=== PATIENT | male | born 1945 | race Caucasian/White ===

== ENCOUNTER 2020-03-04 14:08 | Observation (INO) | payer OTHER ==
--- OUTSIDE RECORDS SUMMARY | 2020-03-04 14:11 | XMS REPORT | Clinical Summary ---
:1945 Author Organization [facility] Address [address] [place] [address] Care Team Providers Name Role Phone Wilbert Primary Care Provider Allergies No Known Allergies Medications Medication Sig Dispensed Refills Start Date End Date Status amLODIPine (NORVASC) 5 Take 5 mg by 0 Active mg tablet mouth daily. levothyroxine Take 88 mcg by 0 A ctive (SYNTHROID, LEVOXYL) 88 mouth every mcg tablet morning. pravastatin (PRAVACHOL) Take 40 mg by 0 Active 40 MG tablet mouth daily. montelukast (SINGULAIR) Take 10 mg by 0 Active 10 mg tablet mouth nightly. aspirin (ECOTRIN) 81 MG Take 81 mg by 0 Active enteric coated tablet mouth daily. dulaglutide (TRULICITY) Inject under the 0 Active 0.75 mg/0.5 mL pen skin once a injector week. ergocalciferol (VITAMIN Take 50,000 0 Active D2) 50,000 unit capsule Units by mouth once a week. benazepril (LOTENSIN) 20 Take 20 mg by 0 Active MG tablet mouth daily. ascorbic acid, vitamin Take 1,000 mg by 0 Active C, (vitamin C) 1000 MG mouth 2 (two) tablet times a day. cyanocobalamin, vitamin Place under the 0 Active B-12, (VITAMIN B-12) tongue. 1,000 mcg tablet, sublingual VITAMIN B COMPLEX ORAL Take 1 tablet by 0 Active mouth daily. glucosamine/msm/chondroi Take by mouth. 0 Active t sulf (GLUCOSAMINE [id number] ORAL) calcium carbonate Take 2 tablets 0 Active (CALCIUM 600 ORAL) by mouth daily. Active Problems Problem Noted Date CAD (coronary artery disease) s/p CABG x 2 (2012) and PCI (2017) 09/01/2018 Chronic kidney disease 09/01/2018 Last Assessment & Plan: N. Patient with renal disease interested in peritoneal dialysis. Patient and I discussed the dialysis options including hemodialysis, peritoneal dialysis, and transplant. We discussed our general approac h to peritoneal dialysis with laparoscop ic placement. We discussed the potential operative risks including general anesthetic complications, injury to intestines, bleeding, infection, and catheter malf unction. We discussed the importance of long-term catheter care with sterile technique to avoid peritonitis. We discussed as well possible catheter malfunction with adhesions with a delayed fashion wh ich could result in need for laparoscopi c revision. Additionally, we discussed possible exhaustion of the peritoneal membrane. Plan: Cardiac clearance from Dr. Haji. Lawanda garza, [employer] and umbilical hernia repair. Hold Eliquis x 48 hours. History of DVT (deep vein thrombosis) (2018) 8 S/P placement of cardiac pacemaker 09/01/2018 Social History Tobacco Use Types Packs/Day Years Used Date Never Smoker Smokeless Tobacco: Never Used Alcohol Use Drinks/Week oz/Week Comments No Sex Assigned at Date Recorded Not on file Job Start Date Occupation Industry Not on file Not on file Not on file Travel History Travel Start Travel End No recent travel history available. 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
--- OUTSIDE RECORDS SUMMARY | 2020-03-04 14:13 | XMS REPORT | Continuity of Care Document ---
:1945 Author Organization [facility] t Address [address] [place] [place] [address] Care Team Providers Name Role Phone Wilbert Primary Care Physician DR YULI Attending Clinician Unavailable CECILY, Attending Clinician Unavailable PEÑA, Attending Clinician Unavailable YULI, Admitting Clinician Unavailable CECILY, Admitting Clinician Unavailable PEÑA, Admitting Clinician Unavailable Payers Payer Name Policy Type Policy Number Effective Date Expiration Date S ource Problems Condition Condition Condition Status Onset Resolution Last Treating Co mments Source Name Details Category Date Date Treatment Clinician Date CAD CAD Disease Active 2017-09 [place] (coronary (coronary 2-11 Meth nadiya artery artery 00:00: st disease) disease) 00 s/p CABG x s/p CABG x 2 (2012) 2 (2012) and PCI and PCI (2017) (2017) Chronic Chronic Disease Active 2017- Last [place] kidney kidney 2-11 Assessmen Methodi disease disease 00:00: t & Plan: st 00 N. Patient with renal disease intereste d in peritonea l dialysis. Patient and I discussed the dialysis options including hemodialy sis, peritonea l dialysis, and transplan t. We discussed our general approach to peritonea l dialysis with laparosco pic placement . We discussed the potential operative risks including general anestheti c complicat ions, injury to intestine s, bleeding, infection , and catheter malfuncti on. We discussed the importanc e of long-term catheter care with sterile technique to avoid peritonit is. We discussed as well possible catheter malfuncti on with adhesions with a delayed fashion which could result in need for laparosco pic revision. Addition ally, we discussed possible exhaustio n of the peritonea l membrane. Plan: Cardiac clearance from Dr. Haji. Then, [place] [employer] and umbilical hernia repair. Hold Eliquis x 48 hours. History of History of Disease Active 2017-09 [place] DVT (deep DVT (deep 11-02 Meth nadiya vein vein 00:00: st thrombosis thrombosis 00 ) (2018) ) (2018) S/P S/P Disease Active 2017-09 [place] placement placement 11-02 Meth nadiya of cardiac of cardiac 00:00: st pacemaker pacemaker 00 Allergies, Adverse Reactions, Alerts Allergy Allergy Status Severity Reaction(s) Onset Inactive Treating Comm ents Source Name Type Date Date Clinician No Known DA Active U 2012-09 [facility] Allergie 10-26 Clear s 00:00: [place] 00 [facility] Social History Social Habit Start Date Stop Date Quantity Comments Source Sex Assigned At [facility] ethodist Alcohol intake 2018-09-01 2018-09-01 Current [facility] thodist 00:00:00 00:00:00 non-drinker of alcohol (finding) Smoking Status Start Date Stop Date Source Never smoker [place] Methodis t Medications Ordered Filled Start Stop Current Ordering Indication Dosage Frequency Signature Comments Components Source Medication Medication Date Date Medication? Clinician (SIG) Name Name amLODIPine 2017-09 Yes 5mg QD Take 5 mg [place] (NORVASC) 5 2-11 by mouth Meth nadiya mg tablet 07:58: daily. st 42 levothyroxi 2017-09 Yes 88ug QD Take 88 Cristian ston ne 2-11 mcg by Methodi (SYNTHROID, 07:58: mouth st LEVOXYL) 88 42 every mcg tablet morning. pravastatin 2017-09 Yes 40mg QD Take 40 mg Raza (PRAVACHOL) 2-11 by mouth Meth nadiya 40 MG 07:58: daily. st tablet 42 montelukast 2017-09 Yes 10mg QD Take 10 mg [place]aza (SINGULAIR) 2-11 by mouth Meth nadiya 10 mg 07:58: nightly. st tablet 42 aspirin 2017-09 Yes 81mg QD Take 81 mg [place] (ECOTRIN) 2-11 by mouth Method i 81 MG 07:58: daily. st enteric 42 coated tablet dulaglutide 2017-09 Yes Q7D Inject [place] (TRULICITY) 2-11 under the Met hodi 0.75 mg/0.5 07:58: skin once s t mL pen 42 a week. injector ergocalcife 2017-09 Yes [id number] Q7D Take [place] rol 2-11 50,000 Methodi (VITAMIN 07:58: Units by st D2) 50,000 42 mouth once unit a week. capsule benazepril 2017-09 Yes 20mg QD Take 20 mg [place] (LOTENSIN) 2-11 by mouth Metho di 20 MG 07:58: daily. st tablet 42 ascorbic 2017-09 Yes 1000mg Q.5D Take 1,000 [place] acid, 2-11 mg by Methodi vitamin C, 07:58: mouth 2 st (vitamin C) 42 (two) 1000 MG times a tablet day. cyanocobala 2017-[address] [place] min, 2-11 under the Methodi vitamin 07:58: tongue. st B-12, 42 (VITAMIN B-12) 1,000 mcg tablet, sublingual VITAMIN B 2017-09 Yes 1{tbl} QD Take 1 [place] COMPLEX 2-11 tablet by Methodi ORAL 07:58: mouth st 42 daily. glucosamine 2017-09 Yes Take by Cristian amira /msm/chondr 2-11 mouth. Method i oit sulf 07:58: st (GLUCOSAMIN 42 E 2KCL-MSM-CH ONDROIT ORAL) calcium 2017-09 Yes 2{tbl} QD Take 2 [place] carbonate 2-11 tablets by Meth nadiya (CALCIUM 07:58: mouth st 600 ORAL) 42 daily. Procedures This patient has no known procedures. Plan of Care Planned Activity Planned Date Details Comments Source Future Scheduled 2020-04-22 INFLUENZA VACCINE Srikanthto n Bahai Test 00:00:00 [code = INFLUENZA VACCINE] Future Scheduled 2012 65+ PNEUMOCOCCAL Raza Bahai Test 00:00:00 VACCINE (1 of 2 - PCV13) [code = 65+ PNEUMOCOCCAL VACCINE (1 of 2 - PCV13)] Future Scheduled 1997 COLONOSCOPY SCREENING Deondre paz Bahai Test 00:00:00 [code = COLONOSCOPY SCREENING] Future Scheduled 1997 SHINGLES VACCINES (#1) H dinora Bahai Test 00:00:00 [code = SHINGLES VACCINES (#1)] Encounters Start End Encounter Admission Attending Care Care Encounter Source Date/Time Date/Time Type Type Clinicians Facility Department ID 2018-06-07 2018-06-08 Outpatient E CECILY [facility] TELE [id number] be 07:20:00 13:56:00 CAYDEN [facility] 2018-05-22 2018-05-26 Inpatient E PEÑA [facility] MED [id number] be 07:30:00 04:17:00 [facility] Results Test Description Test Time Test Comments Results Result Comments Source BLOOD CULTURE 2018-06-18 10:48:00 Test Item Value Reference Range Interpretation Comme nts Culture Observations (test code = COB1) NO GROWTH AFTER 5 DAYS BLOOD [id number] 10:48:00 Test Item Value Reference Range Interpretation Comments Culture Observations (test NO GROWTH AFTER 5 code = COB1) DAYS GLUCOMETER GLUCOSE- LAB USE [id number] 10:45:00 Test Item Value Reference Range Interpretation Comments GLUCOMETER (test code = 117 mg/dL 70-100 H Mete r ID: GMG) [id number] tor: [id number] KIERRAKAELA CARRERA CBC (INCLUDES AUTOMATED DIFFERENTIAL)2018-06-14 07:29:00 Test Item Value Reference Range Interpretation Comments WBC (test code = WBC) 5.0 10\S\3/uL 4.5-11.0 RBC (test code = RBC) 3.04 10\S\6/uL 3.80-5.80 L HGB (test code = HBG) 9.3 g/dL 14.0-18.0 L HCT (test code = HCT) 28.5 % 35.0-46.0 L MCV (test code = MCV) 93.8 fL 80.0-94.0 MCH (test code = MCH) 30.6 pg 27.0-31.0 MCHC (test code = MCHC) 32.6 g/dL 32.0-36.0 RDW (test code = RDW) 14.1 % 11.5-14.5 PLT (test code = PLT) 157 10\S\3/uL 130-400 MPV (test code = MPV) 8.8 fL 9.4-12.4 L NEUTROP # (test code = NE#) 2.5 10\S\3/uL 2.0-8.0 LYMPH # (test code = LY#) 1.7 10\S\3/uL 1.2-4.0 MONOCYTE # (test code = MO#) 0.5 10\S\3/uL 0.0-1.1 EOSINOPH # (test code = EO#) 0.2 10\S\3/uL 0.0-0.7 BASOPHIL # (test code = BA#) 0.0 10\S\3/uL 0.0-0.3 IG # (test code = IG#) 0.03 10\S\3/uL 0.00-0.06 NRBC # (test code = NRBC#) 0.00 10\S\3/uL 0.00-0.01 NEUTROPH % (test code = NE%) 50.6 % 35.0-73.0 LYMPH % (test code = LY%) 34.1 % 20.0-55.0 MONO % (test code = MO%) 10.9 % 2.5-10.0 H EOSINOPH % (test code = EO%) 3.4 % 0.0-5.0 BASOPHIL % (test code = BA%) 0.4 % 0.0-2.0 IG % (test code = IG%) 0.6 % 0.0-0.8 NRBC% (test code = NRBC%) 0.0 % 0.0-0.2 MANDIFF (test code = MDIFF) NO NO RBC MORPH (test code = RBCMOR) NORMAL COMPREHENSIVE METABOLIC [id number] 06:19:00 Test Item Value Reference Range Interpretation Comments GLUCOSE (test code = 06D) 84 mg/dL 75-100 SODIUM (test code = 01A) 137 mmol/L 136-145 POTASSIUM (test code = 01B) 4.3 mmol/L 3.6-5.1 CHLORIDE (test code = 04A) 107 mmol/L 98-107 CO2 (test code = 02A) 19 mmol/L 22-32 L ANION GAP (test code = ANG) 15.3 mmol/L BUN (test code = 05D) 60 mg/dL 7-18 H CREATININE (test code = 03E) 3.3 mg/dL 0.7-1.3 H BUN/CREA (test code = BCR) 18 12-20 CALCIUM (test code = 09D) 7.8 mg/dL 8.3-9.5 L BILI TOTAL (test code = 11A) 0.5 mg/dL 0.2-1.0 PROTEIN (test code = 07D) 6.4 g/dL 6.4-8.2 ALBUMIN (test code = 08D) 3.4 g/dL 3.5-4.8 L GLOBULIN (test code = GLB) 3.0 g/dL 1.5-3.8 ALB/GLOB (test code = AGRR) 1.1 1.0-2.6 ALK PHOS (test code = 35A) 52 IU/L 42-121 AST (test code = 30A) 23 IU/L <=42 ALT (test code = 31A) 26 IU/L <=78 GLUCOMETER GLUCOSE- LAB USE [id number] 06:10:00 Test Item Value Reference Range Interpretation Comments GLUCOMETER (test code 111 mg/dL 70-100 H CLEANE D METERMeter ID: = GMG) [id number] tor: 5169 HÉCTOR JOSEPH CARDIAC [id number] 22:23:00 Test Item Value Reference Range Interpretation Comments TROPONIN I (test code = A84) <0.015 ng/mL 0.000-0.045 CKMB (test code = A49) 1.3 ng/mL <=3.6 CPK (test code = 32A) 59 IU/L 39-308 NM LUNG VENTILATION SCAN W [id number] 22:10:47HISTORY: PainRadiopharmaceutical: 6 mCi Tc 99 MAA and 11 mCi Xe-133 gas.FINDINGS:Ventilation: There is homogeneous distribution of radiotracer on thebreath-hold images. Perfusion: There is mild heterogeneous distribution of radiotracer throughoutboth lungs. No segmental pleural based perfusion abnormal ities demonstrated.IMPRESSION:1. Low probability for pulmonary embolus. GLUCOMETER GLUCOSE- LAB USE [id number] 19:56:00 Test Item Value Reference Range Interpretation Comments GLUCOMETER (test code 140 mg/dL 70-100 H CLEANE D METERMeter ID: = GMG) [id number] tor: 5169 HÉCTOR JOSEPH GLUCOMETER GLUCOSE- LAB USE [id number] 16:05:00 Test Item Value Reference Range Interpretation Comments GLUCOMETER (test code = 181 mg/dL 70-100 H Mete r ID: GMG) [id number] tor: 9208 KIERRA CARRERA CARDIAC [id number] 16:03:00 Test Item Value Reference Range Interpretation Comments TROPONIN I (test code = A84) <0.015 ng/mL 0.000-0.045 CKMB (test code = A49) 1.2 ng/mL <=3.6 CPK (test code = 32A) 55 IU/L 39-308 GLUCOMETER GLUCOSE- LAB USE [id number] 10:56:00 Test Item Value Reference Range Interpretation Comments GLUCOMETER (test code = 96 mg/dL 70-100 Mete r ID: GMG) [id number] tor: 9208 KIERRA CARRERA U/S VENOUS DOPPLER LT LOWER [id number] 09:30:19LOCATION CODE: [id number] DOPPLER LOWER EXTREMITY, LEFTHISTORY: SwellingCOMPARISON: None availableTECH NIQUE: Real-time spectral analysis and color flow imaging ultrasound of the left lower extremity was obtained from the inguinal ligament down to theankle in transverse and longitudinal planes.FINDINGS: Duplex color Doppler ultrasound of the common femoral, superficialfemoral, popliteal, and anterior-posterior tibial vein was obtained.There is partial compressibility noted at the proximal and distal femoralveins. Partial compressibility at the popliteal vein. However flow is seenwithin the veins.Normal flow and compressibility involving the common femoral vein, posteriortibial, anterior tibial and peroneal veins. No augmentation is performed giving possible DVT.IMPRESSION:Partial compressibility noted at the proximal and distal femoral veins as wellas the popliteal vein. However flow is seen within the veins., Therefore, thisis suspicious for partial DVT. Follow-up is recommended.[id number] 08:51:00 Test Item Value Reference Range Interpretation Comments D-DIMER (test code = 3449 ng/mL D-DU 0-234 H DDI) D-DIMER COMMENT (test *Level to rule out code = DDCOM) DVT or PE: <235 ng/mL D-DU* CT HEAD W/O [id number] 08:46:02Location [id number] CT BRAINHistory: Altered mental statusCOMPARISON: None availableTECHNIQUE : Serial axial CT of the brain obtained without the use ofintravenous contrast in the brain and bone window settings. Coronal andsagittal reconstructions are provided. One or more of the following dosereduction techniques were used: Automated exposure control, adjustment of themAs and Kv. According to patient size, use of iterative reconstructionreconstruction technique. DLP 886 mGy-cm.FINDINGS:There is no evidence of acute cerebrovascular injury, mass effect or midlineshift. No evidence of subarachnoid hemorrhage, intracerebral hematoma, orextraaxial fluid collections.There is mild generalized parenchymal volume loss with compensatory widening ofthe ventricular system. Diffuse periventricular white matter hypodensity iscompatible with chronic microangiopathy changes. Heavy atherosclerosis (diffusecalcified plaque) involves the supraclinoid carotid arteries bilaterally.Osseous structures are unremarkable. The orbits appear normal. The visibleparanasal sinuses and mastoid air spaces are clear. If symptomatology persists, correlation with MRI may be of further benefit.IMPRESSION:1. No acute intracranial findings.2. 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 Note of heavy diffuse atherosclerosis involving the supraclinoid carotidarteries.BRAIN NATRIURETIC [id number] 08:44:00 Test Item Value Reference Range Interpretation Comments proBNP (test code = PBNP) 927 pg/mL 0-125 H CARDIAC [id number] 08:41:00 Test Item Value Reference Range Interpretation Comments TROPONIN I (test code = A84) <0.015 ng/mL 0.000-0.045 CKMB (test code = A49) 1.1 ng/mL <=3.6 CPK (test code = 32A) 51 IU/L 39-308 COMPREHENSIVE METABOLIC [id number] 08:40:00 Test Item Value Reference Range Interpretation Comments GLUCOSE (test code = 06D) 95 mg/dL 75-100 SODIUM (test code = 01A) 137 mmol/L 136-145 POTASSIUM (test code = 01B) 4.7 mmol/L 3.6-5.1 CHLORIDE (test code = 04A) 106 mmol/L 98-107 CO2 (test code = 02A) 18 mmol/L 22-32 L ANION GAP (test code = ANG) 17.7 mmol/L BUN (test code = 05D) 63 mg/dL 7-18 H CREATININE (test code = 03E) 3.4 mg/dL 0.7-1.3 H BUN/CREA (test code = BCR) 19 12-20 CALCIUM (test code = 09D) 8.0 mg/dL 8.3-9.5 L BILI TOTAL (test code = 11A) 0.2 mg/dL 0.2-1.0 PROTEIN (test code = 07D) 6.5 g/dL 6.4-8.2 ALBUMIN (test code = 08D) 3.5 g/dL 3.5-4.8 GLOBULIN (test code = GLB) 3.0 g/dL 1.5-3.8 ALB/GLOB (test code = AGRR) 1.2 1.0-2.6 ALK PHOS (test code = 35A) 61 IU/L 42-121 AST (test code = 30A) 17 IU/L <=42 ALT (test code = 31A) 23 IU/L <=78 AMYLASE AND [id number] 08:40:00 Test Item Value Reference Range Interpretation Comments AMYLASE (test code = 10A) 46 U/L 28-100 LIPASE (test code = 60A) 278 IU/L 73-393 [id number] 08:37:00 Test Item Value Reference Range Interpretation Comments MAGNESIUM (test code = 48A) 2.4 mg/dL 1.8-2.4 PRO TIME AND [id number] 08:36:00 Test Item Value Reference Range Interpretation Comments PT (test code = 11.6 s 9.8-13.6 TT) INR (test code = 1.0 INR) INRH (test code = SUGGESTED INRH) THERAPEUTIC RANGE FOR INR: 2.5 - 3.5 For Patients with Prosthetic Valves or Patients with recurrent Thromboembolic Events 2.0 - 3.0 For Most Other Applications PTT (test code = 27.4 s 20.2-38.0 PTT) PTTH (test code = To monitor the PTTH) effectiveness of heparin, we offer the Anti-Xa (Heparin Assay). It can be used for either unfractionated or LMW Heparin. Order Code is ANTI-XA CBC (INCLUDES AUTOMATED DIFFERENTIAL)2018-06-13 08:23:00 Test Item Value Reference Range Interpretation Comments WBC (test code = WBC) 5.5 10\S\3/uL 4.5-11.0 RBC (test code = RBC) 3.12 10\S\6/uL 3.80-5.80 L HGB (test code = HBG) 9.5 g/dL 14.0-18.0 L HCT (test code = HCT) 28.7 % 35.0-46.0 L MCV (test code = MCV) 92.0 fL 80.0-94.0 MCH (test code = MCH) 30.4 pg 27.0-31.0 MCHC (test code = MCHC) 33.1 g/dL 32.0-36.0 RDW (test code = RDW) 14.0 % 11.5-14.5 PLT (test code = PLT) 173 10\S\3/uL 130-400 MPV (test code = MPV) 9.0 fL 9.4-12.4 L NEUTROP # (test code = NE#) 3.3 10\S\3/uL 2.0-8.0 LYMPH # (test code = LY#) 1.4 10\S\3/uL 1.2-4.0 MONOCYTE # (test code = MO#) 0.6 10\S\3/uL 0.0-1.1 EOSINOPH # (test code = EO#) 0.2 10\S\3/uL 0.0-0.7 BASOPHIL # (test code = BA#) 0.0 10\S\3/uL 0.0-0.3 IG # (test code = IG#) 0.05 10\S\3/uL 0.00-0.06 NRBC # (test code = NRBC#) 0.00 10\S\3/uL 0.00-0.01 NEUTROPH % (test code = NE%) 59.6 % 35.0-73.0 LYMPH % (test code = LY%) 25.3 % 20.0-55.0 MONO % (test code = MO%) 11.1 % 2.5-10.0 H EOSINOPH % (test code = EO%) 2.7 % 0.0-5.0 BASOPHIL % (test code = BA%) 0.4 % 0.0-2.0 IG % (test code = IG%) 0.9 % 0.0-0.8 H NRBC% (test code = NRBC%) 0.0 % 0.0-0.2 MANDIFF (test code = MDIFF) NO NO RBC MORPH (test code = RBCMOR) NORMAL XR CHEST 1 VIEW [id number] 08:16:19Location: T5Xssma, AP ViewHistory: DyspneaComparison: Chest radiograph dated 06/07/2018Findings: Lungs are clear. Dual-lead ICD is noted. Heart size appears within normallimits. There are degenerative changes along the spine and right shoulder.Impression:No acute intrathoracic findings.GLUCOMETER GLUCOSE- LAB USE [id number] 11:26:00 Test Item Value Reference Range Interpretation Comments GLUCOMETER (test code = 161 mg/dL 70-100 H Mete r ID: GMG) [id number] tor: 9542 [facility] [id number] 05:43:00 Test Item Value Reference Range Interpretation Comments GLUCOSE (test code = 06D) 103 mg/dL 75-100 H SODIUM (test code = 01A) 138 mmol/L 136-145 POTASSIUM (test code = 01B) 4.9 mmol/L 3.6-5.1 CHLORIDE (test code = 04A) 109 mmol/L 98-107 H CO2 (test code = 02A) 19 mmol/L 22-32 L ANION GAP (test code = ANG) 14.9 mmol/L BUN (test code = 05D) 51 mg/dL 7-18 H CREATININE (test code = 03E) 3.0 mg/dL 0.7-1.3 H BUN/CREA (test code = BCR) 17 12-20 CALCIUM (test code = 09D) 8.8 mg/dL 8.3-9.5 CBC (INCLUDES AUTOMATED DIFFERENTIAL)2018-06-08 05:40:00 Test Item Value Reference Range Interpretation Comments WBC (test code = WBC) 6.0 10\S\3/uL 4.5-11.0 RBC (test code = RBC) 2.95 10\S\6/uL 3.80-5.80 L HGB (test code = HBG) 9.0 g/dL 14.0-18.0 L HCT (test code = HCT) 27.8 % 35.0-46.0 L MCV (test code = MCV) 94.2 fL 80.0-94.0 H MCH (test code = MCH) 30.5 pg 27.0-31.0 MCHC (test code = MCHC) 32.4 g/dL 32.0-36.0 RDW (test code = RDW) 13.7 % 11.5-14.5 PLT (test code = PLT) 219 10\S\3/uL 130-400 MPV (test code = MPV) 8.7 fL 9.4-12.4 L NEUTROP # (test code = NE#) 3.2 10\S\3/uL 2.0-8.0 LYMPH # (test code = LY#) 2.0 10\S\3/uL 1.2-4.0 MONOCYTE # (test code = MO#) 0.6 10\S\3/uL 0.0-1.1 EOSINOPH # (test code = EO#) 0.1 10\S\3/uL 0.0-0.7 BASOPHIL # (test code = BA#) 0.0 10\S\3/uL 0.0-0.3 IG # (test code = IG#) 0.03 10\S\3/uL 0.00-0.06 NRBC # (test code = NRBC#) 0.00 10\S\3/uL 0.00-0.01 NEUTROPH % (test code = NE%) 53.5 % 35.0-73.0 LYMPH % (test code = LY%) 33.3 % 20.0-55.0 MONO % (test code = MO%) 10.0 % 2.5-10.0 EOSINOPH % (test code = EO%) 2.0 % 0.0-5.0 BASOPHIL % (test code = BA%) 0.7 % 0.0-2.0 IG % (test code = IG%) 0.5 % 0.0-0.8 NRBC% (test code = NRBC%) 0.0 % 0.0-0.2 MANDIFF (test code = MDIFF) NO NO RBC MORPH (test code = RBCMOR) NORMAL GLUCOMETER GLUCOSE- LAB USE [id number] 04:56:00 Test Item Value Reference Range Interpretation Comments GLUCOMETER (test code 114 mg/dL 70-100 H Meter ID: = GMG) [id number] tor: 9541 ROBIN PARKER GLUCOMETER GLUCOSE- LAB USE [id number] 19:49:00 Test Item Value Reference Range Interpretation Comments GLUCOMETER (test code 124 mg/dL 70-100 H Meter ID: = GMG) [id number] tor: 9541 ROBIN PARKER NM LUNG (V/Q ) SCAN W [id number] 17:04:35HISTORY: Shortness of breathLocation: A 1Comparison to prior study 06/07/2018TECHNIQUE: 10.7 mCi of xe non-133 was given for the ventilation portion of thestudy. 6.3 mCi of Tc 99m MAA was given for the perfusion portion of the exam.Standard scintigraphic images were obtained.FINDINGS: The perfusion images demonstrate no significant perfusionabnormality. The ventilation images show normal washout of radi oisotope. Thereis no evidence of ventilation/perfusion mismatch. Small defect from the leftbase and device noted.IMPRESSION: Low probability for pulmonary embolismGLUCOMETER GLUCOSE- LAB USE [id number] 15:54:00 Test Item Value Reference Range Interpretation Comments GLUCOMETER (test code = 145 mg/dL 70-100 H Mete r ID: GMG) [id number] tor: 3966 PEPE RAJU GLUCOMETER GLUCOSE- LAB USE [id number] 11:39:00 Test Item Value Reference Range Interpretation Comments GLUCOMETER (test code = 137 mg/dL 70-100 H Mete r ID: GMG) [id number] tor: 3966 PEPE RAJU CARDIAC [id number] 11:10:00 Test Item Value Reference Range Interpretation Comments TROPONIN I (test code = A84) <0.015 ng/mL 0.000-0.045 CKMB (test code = A49) 1.4 ng/mL <=3.6 CPK (test code = 32A) 71 IU/L 39-308 COMPREHENSIVE METABOLIC [id number] 01:35:00 Test Item Value Reference Range Interpretation Comments GLUCOSE (test code = 06D) 109 mg/dL 75-100 H SODIUM (test code = 01A) 138 mmol/L 136-145 POTASSIUM (test code = 01B) 4.9 mmol/L 3.6-5.1 CHLORIDE (test code = 04A) 108 mmol/L 98-107 H CO2 (test code = 02A) 18 mmol/L 22-32 L ANION GAP (test code = ANG) 16.9 mmol/L BUN (test code = 05D) 52 mg/dL 7-18 H CREATININE (test code = 03E) 2.9 mg/dL 0.7-1.3 H BUN/CREA (test code = BCR) 18 12-20 CALCIUM (test code = 09D) 9.1 mg/dL 8.3-9.5 BILI TOTAL (test code = 11A) 0.3 mg/dL 0.2-1.0 PROTEIN (test code = 07D) 6.5 g/dL 6.4-8.2 ALBUMIN (test code = 08D) 3.5 g/dL 3.5-4.8 GLOBULIN (test code = GLB) 3.0 g/dL 1.5-3.8 ALB/GLOB (test code = AGRR) 1.2 1.0-2.6 ALK PHOS (test code = 35A) 53 IU/L 42-121 AST (test code = 30A) 24 IU/L <=42 ALT (test code = 31A) 29 IU/L <=78 BRAIN NATRIURETIC [id number] 01:27:00 Test Item Value Reference Range Interpretation Comments proBNP (test code = PBNP) 1008 pg/mL 0-125 H CARDIAC [id number] 01:24:00 Test Item Value Reference Range Interpretation Comments TROPONIN I (test code = A84) 0.017 ng/mL 0.000-0.045 CKMB (test code = A49) 1.3 ng/mL <=3.6 CPK (test code = 32A) 74 IU/L 39-308 [id number] 01:21:00 Test Item Value Reference Range Interpretation Comments D-DIMER (test code = 1283 ng/mL D-DU 0-234 H DDI) D-DIMER COMMENT (test *Level to rule out code = DDCOM) DVT or PE: <235 ng/mL D-DU* PROTHROMBIN [id number] 01:21:00 Test Item Value Reference Range Interpretation Comments PT (test code = 11.1 s 9.8-13.6 TT) INR (test code = 1.0 INR) INRH (test code = SUGGESTED INRH) THERAPEUTIC RANGE FOR INR: 2.5 - 3.5 For Patients with Prosthetic Valves or Patients with recurrent Thromboembolic Events 2.0 - 3.0 For Most Other Applications PTT (PARTIAL THROMBOPLASTIN TIME)2018-06-07 01:21:00 Test Item Value Reference Range Interpretation Comments PTT (test code = 18.5 s 20.2-38.0 L PTT) PTTH (test code = To monitor the PTTH) effectiveness of heparin, we offer the Anti-Xa (Heparin Assay). It can be used for either unfractionated or LMW Heparin. Order Code is ANTI-XA CBC (INCLUDES AUTOMATED DIFFERENTIAL)2018-06-07 01:08:00 Test Item Value Reference Range Interpretation Comments WBC (test code = WBC) 5.7 10\S\3/uL 4.5-11.0 RBC (test code = RBC) 2.93 10\S\6/uL 3.80-5.80 L HGB (test code = HBG) 9.2 g/dL 14.0-18.0 L HCT (test code = HCT) 27.2 % 35.0-46.0 L MCV (test code = MCV) 92.8 fL 80.0-94.0 MCH (test code = MCH) 31.4 pg 27.0-31.0 H MCHC (test code = MCHC) 33.8 g/dL 32.0-36.0 RDW (test code = RDW) 13.8 % 11.5-14.5 PLT (test code = PLT) 177 10\S\3/uL 130-400 MPV (test code = MPV) 9.5 fL 9.4-12.4 NEUTROP # (test code = NE#) 2.9 10\S\3/uL 2.0-8.0 LYMPH # (test code = LY#) 2.1 10\S\3/uL 1.2-4.0 MONOCYTE # (test code = MO#) 0.6 10\S\3/uL 0.0-1.1 EOSINOPH # (test code = EO#) 0.1 10\S\3/uL 0.0-0.7 BASOPHIL # (test code = BA#) 0.0 10\S\3/uL 0.0-0.3 IG # (test code = IG#) 0.04 10\S\3/uL 0.00-0.06 NRBC # (test code = NRBC#) 0.00 10\S\3/uL 0.00-0.01 NEUTROPH % (test code = NE%) 50.9 % 35.0-73.0 LYMPH % (test code = LY%) 36.1 % 20.0-55.0 MONO % (test code = MO%) 10.1 % 2.5-10.0 H EOSINOPH % (test code = EO%) 1.7 % 0.0-5.0 BASOPHIL % (test code = BA%) 0.5 % 0.0-2.0 IG % (test code = IG%) 0.7 % 0.0-0.8 NRBC% (test code = NRBC%) 0.0 % 0.0-0.2 MANDIFF (test code = MDIFF) NO NO RBC MORPH (test code = RBCMOR) NORMAL XR CHEST 1 VIEW [id number] 00:58:40LOCATION: V20 EXAM: XR CHEST 1 VIEW PORTABLEHISTORY: R06.02: SHORTNESS OF BREATH TECHNIQUE: Frontal view of the chest.COMPARISON: 05/22/2018FINDINGS:The lungs are well inflated and clear. No evidence ofpneumothorax or pleural effusion. The heart is normal in size. The mediastinal contours are unremarkable. Postsurgical changes of prior median sternotomy. A left chest wall pacingdevice has been placed.Osseous structures are intact. IMPRESSION:Interval placement of a left chest wall pacing device.No evidence of acute cardiopulmonary disease.BASIC METABOLIC [id number] 06:25:00 Test Item Value Reference Range Interpretation Comments GLUCOSE (test code = 06D) 85 mg/dL 75-100 SODIUM (test code = 01A) 143 mmol/L 136-145 POTASSIUM (test code = 01B) 4.2 mmol/L 3.6-5.1 CHLORIDE (test code = 04A) 115 mmol/L 98-107 H CO2 (test code = 02A) 20 mmol/L 22-32 L ANION GAP (test code = ANG) 12.2 mmol/L BUN (test code = 05D) 67 mg/dL 7-18 H CREATININE (test code = 03E) 3.8 mg/dL 0.7-1.3 H BUN/CREA (test code = BCR) 18 12-20 CALCIUM (test code = 09D) 8.6 mg/dL 8.3-9.5 CBC (INCLUDES AUTOMATED DIFFERENTIAL)2018-05-25 05:50:00 Test Item Value Reference Range Interpretation Comments WBC (test code = WBC) 4.8 10\S\3/uL 4.5-11.0 RBC (test code = RBC) 2.76 10\S\6/uL 3.80-5.80 L HGB (test code = HBG) 8.5 g/dL 14.0-18.0 L HCT (test code = HCT) 25.7 % 35.0-46.0 L MCV (test code = MCV) 93.1 fL 80.0-94.0 MCH (test code = MCH) 30.8 pg 27.0-31.0 MCHC (test code = MCHC) 33.1 g/dL 32.0-36.0 RDW (test code = RDW) 13.2 % 11.5-14.5 PLT (test code = PLT) 123 10\S\3/uL 130-400 L MPV (test code = MPV) 9.3 fL 9.4-12.4 L NEUTROP # (test code = NE#) 3.2 10\S\3/uL 2.0-8.0 LYMPH # (test code = LY#) 1.0 10\S\3/uL 1.2-4.0 L MONOCYTE # (test code = MO#) 0.3 10\S\3/uL 0.0-1.1 EOSINOPH # (test code = EO#) 0.3 10\S\3/uL 0.0-0.7 BASOPHIL # (test code = BA#) 0.0 10\S\3/uL 0.0-0.3 IG # (test code = IG#) 0.02 10\S\3/uL 0.00-0.06 NRBC # (test code = NRBC#) 0.00 10\S\3/uL 0.00-0.01 NEUTROPH % (test code = NE%) 66.1 % 35.0-73.0 LYMPH % (test code = LY%) 20.8 % 20.0-55.0 MONO % (test code = MO%) 6.9 % 2.5-10.0 EOSINOPH % (test code = EO%) 5.6 % 0.0-5.0 H BASOPHIL % (test code = BA%) 0.2 % 0.0-2.0 IG % (test code = IG%) 0.4 % 0.0-0.8 NRBC% (test code = NRBC%) 0.0 % 0.0-0.2 MANDIFF (test code = MDIFF) NO NO RBC MORPH (test code = RBCMOR) NORMAL PHOSPHORUS (P04)2018-05-24 18:10:00 Test Item Value Reference Range Interpretation Comments PHOSPHORUS (test code = 43D) 2.7 mg/dL 2.7-4.6 [id number] 18:06:00 Test Item Value Reference Range Interpretation Comments MAGNESIUM (test code = 48A) 2.2 mg/dL 1.8-2.4 CBC (INCLUDES AUTOMATED DIFFERENTIAL)2018-05-24 05:55:00 Test Item Value Reference Range Interpretation Comments WBC (test code = WBC) 5.7 10\S\3/uL 4.5-11.0 RBC (test code = RBC) 2.98 10\S\6/uL 3.80-5.80 L HGB (test code = HBG) 9.2 g/dL 14.0-18.0 L HCT (test code = HCT) 28.0 % 35.0-46.0 L MCV (test code = MCV) 94.0 fL 80.0-94.0 MCH (test code = MCH) 30.9 pg 27.0-31.0 MCHC (test code = MCHC) 32.9 g/dL 32.0-36.0 RDW (test code = RDW) 13.2 % 11.5-14.5 PLT (test code = PLT) 121 10\S\3/uL 130-400 L MPV (test code = MPV) 9.3 fL 9.4-12.4 L NEUTROP # (test code = NE#) 4.2 10\S\3/uL 2.0-8.0 LYMPH # (test code = LY#) 0.8 10\S\3/uL 1.2-4.0 L MONOCYTE # (test code = MO#) 0.4 10\S\3/uL 0.0-1.1 EOSINOPH # (test code = EO#) 0.3 10\S\3/uL 0.0-0.7 BASOPHIL # (test code = BA#) 0.0 10\S\3/uL 0.0-0.3 IG # (test code = IG#) 0.03 10\S\3/uL 0.00-0.06 NRBC # (test code = NRBC#) 0.00 10\S\3/uL 0.00-0.01 NEUTROPH % (test code = NE%) 73.4 % 35.0-73.0 H LYMPH % (test code = LY%) 13.8 % 20.0-55.0 L MONO % (test code = MO%) 6.5 % 2.5-10.0 EOSINOPH % (test code = EO%) 5.8 % 0.0-5.0 H BASOPHIL % (test code = BA%) 0.0 % 0.0-2.0 IG % (test code = IG%) 0.5 % 0.0-0.8 NRBC% (test code = NRBC%) 0.0 % 0.0-0.2 MANDIFF (test code = MDIFF) NO NO RBC MORPH (test code = RBCMOR) NORMAL BASIC METABOLIC [id number] 05:53:00 Test Item Value Reference Range Interpretation Comments GLUCOSE (test code = 06D) 99 mg/dL 75-100 SODIUM (test code = 01A) 137 mmol/L 136-145 POTASSIUM (test code = 01B) 4.7 mmol/L 3.6-5.1 CHLORIDE (test code = 04A) 108 mmol/L 98-107 H CO2 (test code = 02A) 20 mmol/L 22-32 L ANION GAP (test code = ANG) 13.7 mmol/L BUN (test code = 05D) 75 mg/dL 7-18 H CREATININE (test code = 03E) 4.8 mg/dL 0.7-1.3 H BUN/CREA (test code = BCR) 16 12-20 CALCIUM (test code = 09D) 9.6 mg/dL 8.3-9.5 H BASIC METABOLIC [id number] 05:52:00 Test Item Value Reference Range Interpretation Comments GLUCOSE (test code = 06D) 108 mg/dL 75-100 H SODIUM (test code = 01A) 134 mmol/L 136-145 L POTASSIUM (test code = 01B) 5.3 mmol/L 3.6-5.1 H CHLORIDE (test code = 04A) 104 mmol/L 98-107 CO2 (test code = 02A) 19 mmol/L 22-32 L ANION GAP (test code = ANG) 16.3 mmol/L BUN (test code = 05D) 83 mg/dL 7-18 H CREATININE (test code = 03E) 5.2 mg/dL 0.7-1.3 H BUN/CREA (test code = BCR) 16 12-20 CALCIUM (test code = 09D) 10.1 mg/dL 8.3-9.5 H CBC (INCLUDES AUTOMATED DIFFERENTIAL)2018-05-23 05:51:00 Test Item Value Reference Range Interpretation Comments WBC (test code = WBC) 9.1 10\S\3/uL 4.5-11.0 RBC (test code = RBC) 2.91 10\S\6/uL 3.80-5.80 L HGB (test code = HBG) 8.9 g/dL 14.0-18.0 L HCT (test code = HCT) 27.7 % 35.0-46.0 L MCV (test code = MCV) 95.2 fL 80.0-94.0 H MCH (test code = MCH) 30.6 pg 27.0-31.0 MCHC (test code = MCHC) 32.1 g/dL 32.0-36.0 RDW (test code = RDW) 13.5 % 11.5-14.5 PLT (test code = PLT) 120 10\S\3/uL 130-400 L MPV (test code = MPV) 9.3 fL 9.4-12.4 L NEUTROP # (test code = NE#) 7.4 10\S\3/uL 2.0-8.0 LYMPH # (test code = LY#) 0.7 10\S\3/uL 1.2-4.0 L MONOCYTE # (test code = MO#) 0.4 10\S\3/uL 0.0-1.1 EOSINOPH # (test code = EO#) 0.4 10\S\3/uL 0.0-0.7 BASOPHIL # (test code = BA#) 0.0 10\S\3/uL 0.0-0.3 IG # (test code = IG#) 0.10 10\S\3/uL 0.00-0.06 H NRBC # (test code = NRBC#) 0.00 10\S\3/uL 0.00-0.01 NEUTROPH % (test code = NE%) 82.0 % 35.0-73.0 H LYMPH % (test code = LY%) 8.0 % 20.0-55.0 L MONO % (test code = MO%) 4.4 % 2.5-10.0 EOSINOPH % (test code = EO%) 4.5 % 0.0-5.0 BASOPHIL % (test code = BA%) 0.0 % 0.0-2.0 IG % (test code = IG%) 1.1 % 0.0-0.8 H NRBC% (test code = NRBC%) 0.0 % 0.0-0.2 MANDIFF (test code = MDIFF) NO NO RBC MORPH (test code = RBCMOR) NORMAL CREATININE RANDOM [id number] 14:46:00 Test Item Value Reference Range Interpretation Comments CREA NAYAN (test code 83.6 mg/dL = CREAR) NRR (test code = * NO REFRENCE RANGE NRR) AVAILABLE FOR RANDOM SPECIMEN* PROTEIN URINE [id number] 14:34:00 Test Item Value Reference Range Interpretation Comments PROT RAND (test code 77 mg/dL = KS) NRR (test code = * NO REFRENCE RANGE NRR) AVAILABLE FOR RANDOM SPECIMEN* URINALYSIS WITH [id number] 14:27:00 Test Item Value Reference Range Interpretation Comments COLOR (test code = COLU) YELLOW YELLOW CLARITY (test code = CLA) CLEAR CLEAR GLUCOSE UR (test code = UA GLUCOSE) NEGATIVE NEGATIVE BILI UR (test code = BILE) NEGATIVE NEGATIVE KETONES UR (test code = CARROLL) NEGATIVE NEGATIVE SP GRAVITY (test code = SPGR) 1.013 1.005-1.030 PH UR (test code = PH) 5.5 4.5-8.0 PROTEIN UR (test code = PU) 2+ NEGATIVE A UROBIL UR (test code = UROQ) 0.2 EU/dL 0.2-1.0 NITRITE UR (test code = NITRITE) NEGATIVE NEGATIVE BLOOD UR (test code = UA BLOOD) NEGATIVE NEGATIVE LEUK ES UR (test code = LEUK) 1+ NEGATIVE A WBC UR (test code = UWBC) 4 /HPF 0-3 H RBC UR (test code = URBC) 1 /HPF 0-2 EPITH UR (test code = UEPC) NONE /LPF NONE BACTERIA UR (test code = UBACT) FEW /HPF NONE A CAST UR (test code = CAST) /LPF NONE CRYSTAL UR (test code = CRYU) / LPF NONE MUCUS UR (test code = MUC) / HPF NONE AMORPH UR (test code = REAGAN) / HPF NONE TRICH UR (test code = UTRICH) /HPF NONE YEAST UR (test code = UY) /HPF NONE SPERM UR (test code = USPERM) /HPF NONE SODIUM RANDOM [id number] 14:23:00 Test Item Value Reference Range Interpretation Comments NA UR RAND (test 26 mmol/L code = NAUR) NRR (test code = * NO REFRENCE RANGE NRR) AVAILABLE FOR RANDOM SPECIMEN* CARDIAC [id number] 13:20:00 Test Item Value Reference Range Interpretation Comments TROPONIN I (test code = A84) 5.520 ng/mL 0.000-0.045 HH CKMB (test code = A49) 5.1 ng/mL <=3.6 HH CPK (test code = 32A) 87 IU/L 39-308 CARDIAC [id number] 06:52:00 Test Item Value Reference Range Interpretation Comments TROPONIN I (test code = A84) 7.120 ng/mL 0.000-0.045 HH CKMB (test code = A49) 8.6 ng/mL <=3.6 HH CPK (test code = 32A) 154 IU/L 39-308 BRAIN NATRIURETIC [id number] 06:49:00 Test Item Value Reference Range Interpretation Comments proBNP (test code = PBNP) 5645 pg/mL 0-125 H COMPREHENSIVE METABOLIC [id number] 06:47:00 Test Item Value Reference Range Interpretation Comments GLUCOSE (test code = 06D) 161 mg/dL 75-100 H SODIUM (test code = 01A) 134 mmol/L 136-145 L POTASSIUM (test code = 01B) 4.5 mmol/L 3.6-5.1 CHLORIDE (test code = 04A) 98 mmol/L 98-107 CO2 (test code = 02A) 21 mmol/L 22-32 L ANION GAP (test code = ANG) 19.5 mmol/L BUN (test code = 05D) 80 mg/dL 7-18 H CREATININE (test code = 03E) 5.1 mg/dL 0.7-1.3 H BUN/CREA (test code = BCR) 16 12-20 CALCIUM (test code = 09D) 12.0 mg/dL 8.3-9.5 H BILI TOTAL (test code = 11A) 0.6 mg/dL 0.2-1.0 PROTEIN (test code = 07D) 6.8 g/dL 6.4-8.2 ALBUMIN (test code = 08D) 3.7 g/dL 3.5-4.8 GLOBULIN (test code = GLB) 3.1 g/dL 1.5-3.8 ALB/GLOB (test code = AGRR) 1.2 1.0-2.6 ALK PHOS (test code = 35A) 41 IU/L 42-121 L AST (test code = 30A) 30 IU/L <=42 ALT (test code = 31A) 25 IU/L <=78 PRO TIME AND [id number] 06:38:00 Test Item Value Reference Range Interpretation Comments PT (test code = 12.2 s 9.8-13.6 TT) INR (test code = 1.1 INR) INRH (test code = SUGGESTED INRH) THERAPEUTIC RANGE FOR INR: 2.5 - 3.5 For Patients with Prosthetic Valves or Patients with recurrent Thromboembolic Events 2.0 - 3.0 For Most Other Applications PTT (test code = 25.4 s 20.2-38.0 PTT) PTTH (test code = To monitor the PTTH) effectiveness of heparin, we offer the Anti-Xa (Heparin Assay). It can be used for either unfractionated or LMW Heparin. Order Code is ANTI-XA CBC (INCLUDES AUTOMATED DIFFERENTIAL)2018-05-22 06:28:00 Test Item Value Reference Range Interpretation Comments WBC (test code = WBC) 15.5 10\S\3/uL 4.5-11.0 H RBC (test code = RBC) 3.65 10\S\6/uL 3.80-5.80 L HGB (test code = HBG) 11.1 g/dL 14.0-18.0 L HCT (test code = HCT) 33.2 % 35.0-46.0 L MCV (test code = MCV) 91.0 fL 80.0-94.0 MCH (test code = MCH) 30.4 pg 27.0-31.0 MCHC (test code = MCHC) 33.4 g/dL 32.0-36.0 RDW (test code = RDW) 13.2 % 11.5-14.5 PLT (test code = PLT) 142 10\S\3/uL 130-400 MPV (test code = MPV) 9.3 fL 9.4-12.4 L NEUTROP # (test code = NE#) 13.8 10\S\3/uL 2.0-8.0 H LYMPH # (test code = LY#) 0.5 10\S\3/uL 1.2-4.0 L MONOCYTE # (test code = MO#) 0.5 10\S\3/uL 0.0-1.1 EOSINOPH # (test code = EO#) 0.5 10\S\3/uL 0.0-0.7 BASOPHIL # (test code = BA#) 0.0 10\S\3/uL 0.0-0.3 IG # (test code = IG#) 0.20 10\S\3/uL 0.00-0.06 H NRBC # (test code = NRBC#) 0.00 10\S\3/uL 0.00-0.01 NEUTROPH % (test code = NE%) 88.7 % 35.0-73.0 H LYMPH % (test code = LY%) 3.5 % 20.0-55.0 L MONO % (test code = MO%) 3.4 % 2.5-10.0 EOSINOPH % (test code = EO%) 3.0 % 0.0-5.0 BASOPHIL % (test code = BA%) 0.1 % 0.0-2.0 IG % (test code = IG%) 1.3 % 0.0-0.8 H NRBC% (test code = NRBC%) 0.0 % 0.0-0.2 MANDIFF (test code = MDIFF) NO NO RBC MORPH (test code = RBCMOR) NORMAL XR CHEST 1 VIEW [id number] 06:24:21HISTORY: Chest pain.Location: C3 COMPARISON:09/17/13FINDINGS: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 The lungs are clear of focal consolidation. No effusion, pneumothorax, oracute osseous abnormality. IMPRESSION:1. Stable chest. No focal consolidation.
--- NOTE | 2020-03-04 15:27 | RAD REPORT ---
EXAM DESCRIPTION: CT - Head Brain Wo Cont - 03/04/2020 2:51 pm CLINICAL HISTORY: Headache status post trauma COMPARISON: None TECHNIQUE: Computed axial tomography of the head was obtained. IV contrast was not requested. All CT scans are performed using dose optimization technique as appropriate and may include automated exposure control or mA/KV adjustment according to patient size. FINDINGS: Small to moderate mostly low-density fluid collection is present along the right frontal c onvexity. It does contain few small areas of increased density. The ventricles are normal in caliber. No shift of midline structures No extra-axial fluid collection is noted. Mild low-density areas within periventricular, deep and subcortical white matter likely represent is chemic changes secondary to small vessel disease. Fluid within the sinuses/ mastoids is not seen. IMPRESSION: Small to moderate fluid collection along the right frontal convexity has the appearance of being a subacute to old subdural hematoma. This should be correlated clinically. No prior exams ar e available for comparison. Follow-up CT in a days may be helpful for re-evaluation. Examination discussed with Doctor Connors the Emergency Room 3:15 p.m. March 04, 2020
--- NOTE | 2020-03-04 16:21 | ER ---
Nurse's Notes [facility] Name: Erik Morton Age: 74 yrs Sex: Male : 1945 Arrival Date: 03/04/2020 Time: 14:10 Bed 5 Private MD: Alli Lambert V Diagnosis: Subdural Hemorrhage (Chronic);Superficial injury of head Presentation: 03/04 14:14 Chief complaint: Patient states: "I missed a step and fell onto my face on concrete". aa5 Pt denies pain. Abrasions noted left side of face, left hand, and right knee. Pt applying pressure with gauze to left side of face, pt states "I take blood thinners". Denies LOC, denies blurry vision, denies N/V. 14:14 Acuity: ARMIDA 3 aa5 14:14 Method Of Arrival: Ambulatory aa5 14:14 Coronavirus screen: Proceed with normal triage. Patient denies a cough. Patient denies aa5 shortness of breath or difficulty breathing. Patient denies measured and/or subjective temperature greater than 100.4F prior to today's visit. Patient denies travel on a cruise ship or to a country the [facility] currently lists as an affected area. Patient denies contact with known and/or suspected case of COVID-19. Ebola Screen: Patient negative for fever greater than or equal to 101.5 degrees Fahrenheit, and additional compatible Ebola Virus Disease symptoms. Initial Sepsis Screen: Does the patient meet any 2 criteria? No. Patient's initial sepsis screen is negative. Does the patient have a suspected source of infection? No. Patient's initial sepsis screen is negative. Risk Assessment: Do you want to hurt yourself or someone else? Patient reports no desire to harm self or others. Onset of symptoms was March 04, 2020. 14:36 Care prior to arrival: Bleeding of injury controlled. Mechanism of Injury: Fall from jl7 standing position. Trauma event details: Injury occurred in the [facility], Injury occurred: at home. Injury occurred: March 04, 2020 Injury occurred at: 13:45. Trauma Activation: Alert Physician: ED Physician; Name: LAST [place]; Notified At: 14:20; Arrived At: 14:20 Physician: General Surgeon; Name: ; Notified At: 14:20; Arrived At: Physician: Radiology; Name: ; Notified At: 14:20; Arrived At: Physician: Respiratory; Name: ; Notified At: 14:20; Arrived At: Physician: Lab; Name: ; Notified At: 14:20; Arrived At: Historical: - Allergies: 14:24 No Known Allergies; aa5 - Home Meds: 14:30 pantoprazole oral oral [Active]; amiodarone Oral [Active]; BRILINTA oral oral [Active]; aa5 metoprolol [Active]; aspirin 81 mg Oral chew 1 tab once daily [Active]; Furosemide Oral [Active]; montelukast oral oral [Active]; Allopurinol Oral [Active]; glucosamine-chondroitin oral oral [Active]; levothyroxine oral [Active]; pravastatin oral oral [Active]; gabapentin 100 mg oral cap 3 times per day [Active]; prednisone 10 mg Oral tab 2 times per day [Active]; - PMHx: 14:45 Hypertension; Hypothyroidism; GERD; Hyperlipidemia; jl7 - Immunization history:: Last tetanus immunization: < 5 years ago. - Social history:: Smoking status: Patient denies any tobacco usage or history of. Patient/guardian denies using alcohol. Screenin:20 Abuse screen: Denies threats or abuse. Denies injuries from another. Tuberculosis jl7 screening: No symptoms or risk factors identified. 14:46 Nutritional screening: No deficits noted. Fall Risk Fall in past 12 months (25 points). jl7 Total Serrano Fall Scale indicates Low Risk Score (25-44 pts). Fall prevention measures have been instituted. Side Rails Up X 2 Placed close to Nursing Station Frequent Obs/Assesments occuring Family Present and informed to notify staff if they need to leave bedside As available Patient and Family Educated on Fall Prevention Program and strategies. Primary Survey: 14:20 NO uncontrolled hemorrhage observed. Breathing/Chest: Respiratory pattern: regular, jl7 Respiratory effort: spontaneous, unlabored, Chest inspection: symmetrical rise and fall of the chest. Circulation: Pulses: palpable right radial artery and left radial artery. Skin color: pink, Skin temperature: warm. Disability Alert. Exposure/Environment: There is no evidence of uncontrolled external bleeding. Obvious injury(ies) are noted at this time: hematoma noted to left side of forehead. 14:45 Reassessment Airway Airway Patent Breathing/Chest Respiratory pattern Regular jl7 Respiratory effort Spontaneous Unlabored Chest inspection Symmetrical Circulation Color [place] Temperature Warm Disability Alert. Assessment: 14:20 General: Appears in no apparent distress. uncomfortable, Behavior is calm, cooperative, jl7 appropriate for age. Pain: Complains of pain in left rib cage on palpation. Neuro: Level of Consciousness is awake, alert, obeys commands, Oriented to person, place, time, situation. Cardiovascular: Patient's skin is warm and dry. Respiratory: Airway is patent Respiratory effort is even, unlabored, Respiratory pattern is regular, symmetrical. GI: Abdomen is round non-distended. Derm: Skin is pink, warm \\T\\ dry. Bruising that is dark purple, on bilateral forearms and hands. Derm: Bruising that is bright red, on anterior aspect of left upper chest, underneath left breast. Musculoskeletal: Swelling present in left side of forehead. 14:46 Reassessment: Pt to CT via stretcher. jl7 16:00 Reassessment: Patient appears in no apparent distress at this time. No changes from jl7 previously documented assessment. Patient and/or family updated on plan of care and expected duration. Pain level reassessed. Patient is alert, oriented x 3, equal unlabored respirations, skin warm/dry/pink. 17:00 Reassessment: Patient appears in no apparent distress at this time. No changes from jl7 previously documented assessment. Patient and/or family updated on plan of care and expected duration. Pain level reassessed. Patient is alert, oriented x 3, equal unlabored respirations, skin warm/dry/pink. Vital Signs: 14:17 BP 133 / 65; Pulse 73; Resp 16 S; Pulse Ox 100% on R/A; Weight 95.71 kg (R); Height 5 aa5 ft. 7 in. (170.18 cm) (R); Pain 0/10; 14:45 BP 112 / 63; Pulse 72; Resp 16; Pulse Ox 100% ; jl7 15:15 BP 112 / 65; jl7 16:00 BP 117 / 69; jl7 17:00 BP 139 / 79; jl7 17:44 BP 143 / 88; Pulse 69; Resp 16; Pulse Ox 100% ; jl7 14:17 Body Mass Index 33.05 (95.71 kg, 170.18 cm) aa5 Carlisle Coma Score: 14:20 Eye Response: spontaneous(4). Verbal Response: oriented(5). Motor Response: obeys jl7 commands(6). Total: 15. 14:45 Eye Response: spontaneous(4). Verbal Response: oriented(5). Motor Response: obeys jl7 commands(6). Total: 15. 15:15 Eye Response: spontaneous(4). Verbal Response: oriented(5). Motor Response: obeys jl7 commands(6). Total: 15. 16:00 Eye Response: spontaneous(4). Verbal Response: oriented(5). Motor Response: obeys jl7 commands(6). Total: 15. 17:00 Eye Response: spontaneous(4). Verbal Response: oriented(5). Motor Response: obeys jl7 commands(6). Total: 15. 17:44 Eye Response: spontaneous(4). Verbal Response: oriented(5). Motor Response: obeys jl7 commands(6). Total: 15. Trauma Score (Adult): 14:20 Eye Response: spontaneous(1); Verbal Response: oriented(1); Motor Response: obeys jl7 commands(2); Systolic BP: > 89 mm Hg(4); Respiratory Rate: 10 to 29 per min(4); Carlisle Score: 15; Trauma Score: 12 ED Course: 14:10 Patient arrived in ED. as 14:10 Alli Lambert MD is Private Physician. as 14:14 Arm band placed on Patient placed in an exam room, on a stretcher. aa5 14:16 Estela Valadez, RN is Primary Nurse. jl7 14:20 Patient has correct armband on for positive identification. Placed in gown. Bed in low jl7 position. Call light in reach. Side rails up X2. Adult w/ patient. 14:20 Patient maintains SpO2 saturation greater than 95% on room air. jl7 14:20 Thermoregulation: Pt refused warm blanket. jl7 14:23 Triage completed. aa5 14:29 Raji Elaine PA is PHCP. jr8 14:29 Daniele Connors MD is Attending Physician. jr8 14:46 Pulse ox on. NIBP on. jl7 14:51 CT Head Brain wo Cont In Process Unspecified. EDMS 14:51 CT completed. Patient tolerated procedure well. Patient moved back from CT. bq 16:19 Alli Lambert MD is Hospitalizing Provider. jr8 17:48 No provider procedures requiring assistance completed. Patient did not have IV access jl7 during this emergency room visit. Administered Medications: No medications were administered Intake: 17:47 PO: 0ml; IV: 0ml; Tubes: 0ml (); Total: 0ml. jl7 Output: 17:47 Urine: 0ml; Gastric: 0ml; Stool: 0; EBL: 0ml; Drainage: 0ml; Other: 0; Total: 0ml. jl7 Outcome: 16:21 Decision to Hospitalize by Provider. jr8 17:52 Admitted to Tele accompanied by poncho, via stretcher, room 204, with chart, Report jl7 called to AMY Grover 17:52 Condition: stable 17:52 Discharge instructions given to patient, Instructed on the need for admit, Demonstrated understanding of instructions. 17:53 Patient's length of stay was not longer than 2 hours. jl7 18:09 Patient left the ED. jl7 Signatures: Dispatcher [employer] EDMS JayashreejoannMilly bq Ca Mendoza Audri, RN RN aa5 Raji Elaine PA PA jr8 Estela Valadez, AMY RN jl7 Corrections: (The following items were deleted from the chart) 14:25 14:14 Chief complaint: Patient states: "I missed a step and fell onto my face on aa5 concrete". Pt denies pain. Abrasions noted left side of face, left hand, and right knee. Pt applying pressure with gauze to left side of face, pt states "I take blood thinners" aa5
--- NOTE | 2020-03-04 16:21 | EDPHYS ---
Physician Documentation [facility] Name: Erik Morton Age: 74 yrs Sex: Male : 1945 Arrival Date: 03/04/2020 Time: 14:10 Bed 5 Private MD: Alli Lambert V ED Physician Daniele Connors HPI: 03/04 16:01 This 74 yrs old Male presents to ER via Ambulatory with complaints of Fall jr8 Injury. 16:01 Details of fall: The patient fell from an upright position, while standing. Onset: The jr8 symptoms/episode began/occurred acutely, today. Associated injuries: The patient sustained injury to the head, abrasion, pain, tenderness, left hand, right leg. Severity of symptoms: At their worst the symptoms were mild, in the emergency department the symptoms are unchanged. The patient has experienced similar episodes in the past, several times. The patient has not recently seen a physician. Patient stated that he is often unsteady on his feet due to age and his knees. Stated that he tripped outside on stairs today. Fell face first but denies LOC. Mild pain to head present. Denies any other symptoms at this time . Historical: - Allergies: 14:24 No Known Allergies; aa5 - Home Meds: 14:30 pantoprazole oral oral [Active]; amiodarone Oral [Active]; BRILINTA oral oral [Active]; aa5 metoprolol [Active]; aspirin 81 mg Oral chew 1 tab once daily [Active]; Furosemide Oral [Active]; montelukast oral oral [Active]; Allopurinol Oral [Active]; glucosamine-chondroitin oral oral [Active]; levothyroxine oral [Active]; pravastatin oral oral [Active]; gabapentin 100 mg oral cap 3 times per day [Active]; prednisone 10 mg Oral tab 2 times per day [Active]; - PMHx: 14:45 Hypertension; Hypothyroidism; GERD; Hyperlipidemia; jl7 - Immunization history:: Last tetanus immunization: < 5 years ago. - Social history:: Smoking status: Patient denies any tobacco usage or history of. Patient/guardian denies using alcohol. ROS: 16:01 Eyes: Negative for injury, pain, redness, and discharge, ENT: Negative for injury, jr8 pain, and discharge, Neck: Negative for injury, pain, and swelling, Cardiovascular: Negative for chest pain, palpitations, and edema, Respiratory: Negative for shortness of breath, cough, wheezing, and pleuritic chest pain, Abdomen/GI: Negative for abdominal pain, nausea, vomiting, diarrhea, and constipation, Back: Negative for injury and pain, Neuro: Negative for headache, weakness, numbness, tingling, and seizure. 16:01 MS/extremity: Positive for abrasion, contusion, of the left hand and right leg. 16:01 Skin: Positive for abrasion(s), avulsion. Exam: 16:01 Eyes: Pupils equal round and reactive to light, extra-ocular motions intact. Lids and jr8 lashes normal. Conjunctiva and sclera are non-icteric and not injected. Cornea within normal limits. Periorbital areas with no swelling, redness, or edema. ENT: Nares patent. No nasal discharge, no septal abnormalities noted. Tympanic membranes are normal and external auditory canals are clear. Oropharynx with no redness, swelling, or masses, exudates, or evidence of obstruction, uvula midline. Mucous membranes moist. Neck: Trachea midline, no thyromegaly or masses palpated, and no cervical lymphadenopathy. Supple, full range of motion without nuchal rigidity, or vertebral point tenderness. No Meningismus. Chest/axilla: Normal chest wall motion. Some bruising noted to anterior and lateral left chest wall. Nontender with no deformity. No lesions are appreciated. Cardiovascular: Regular rate and rhythm with a normal S1 and S2. No gallops, murmurs, or rubs. Normal PMI, no JVD. No pulse deficits. Respiratory: Lungs have equal breath sounds bilaterally, clear to auscultation and percussion. No rales, rhonchi or wheezes noted. No increased work of breathing, no retractions or nasal flaring. Abdomen/GI: Soft, non-tender, with normal bowel sounds. No distension or tympany. No guarding or rebound. No evidence of tenderness throughout. Back: No spinal tenderness. No costovertebral tenderness. Full range of motion. Neuro: Awake and alert, GCS 15, oriented to person, place, time, and situation. Cranial nerves II-XII grossly intact. Motor strength 5/5 in all extremities. Sensory grossly intact. Cerebellar exam normal. Normal gait. 16:01 Skin: Warm, dry with normal turgor. Normal color with no rashes, no lesions, and no evidence of cellulitis. 16:01 Head/face: Noted is abrasion(s), that are moderate, of the forehead and left cheek. 16:01 Musculoskeletal/extremity: Extremities: grossly normal except: noted in the right knee: Patient has mid bruising noted without tenderness or deformity, noted in the left hand: abrasion, ecchymosis, mild avulsion of skin to CMC region of left hand, ROM: intact in all extremities, full active range of motion, full passive range of motion, Circulation is intact in all extremities. Sensation intact. Vital Signs: 14:17 BP 133 / 65; Pulse 73; Resp 16 S; Pulse Ox 100% on R/A; Weight 95.71 kg (R); Height 5 aa5 ft. 7 in. (170.18 cm) (R); Pain 0/10; 14:45 BP 112 / 63; Pulse 72; Resp 16; Pulse Ox 100% ; jl7 15:15 BP 112 / 65; jl7 16:00 BP 117 / 69; jl7 17:00 BP 139 / 79; jl7 17:44 BP 143 / 88; Pulse 69; Resp 16; Pulse Ox 100% ; jl7 14:17 Body Mass Index 33.05 (95.71 kg, 170.18 cm) aa5 Fisher Coma Score: 14:20 Eye Response: spontaneous(4). Verbal Response: oriented(5). Motor Response: obeys jl7 commands(6). Total: 15. 14:45 Eye Response: spontaneous(4). Verbal Response: oriented(5). Motor Response: obeys jl7 commands(6). Total: 15. 15:15 Eye Response: spontaneous(4). Verbal Response: oriented(5). Motor Response: obeys jl7 commands(6). Total: 15. 16:00 Eye Response: spontaneous(4). Verbal Response: oriented(5). Motor Response: obeys jl7 commands(6). Total: 15. 17:00 Eye Response: spontaneous(4). Verbal Response: oriented(5). Motor Response: obeys jl7 commands(6). Total: 15. 17:44 Eye Response: spontaneous(4). Verbal Response: oriented(5). Motor Response: obeys jl7 commands(6). Total: 15. Trauma Score (Adult): 14:20 Eye Response: spontaneous(1); Verbal Response: oriented(1); Motor Response: obeys jl7 commands(2); Systolic BP: > 89 mm Hg(4); Respiratory Rate: 10 to 29 per min(4); Fisher Score: 15; Trauma Score: 12 MDM: 14:29 Patient medically screened. [facility] 16:01 Data reviewed: vital signs, nurses notes, radiologic studies, CT scan. Data jr8 interpreted: Pulse oximetry: on room air is 100 %. Interpretation: normal. Counseling: I had a detailed discussion with the patient and/or guardian regarding: the historical points, exam findings, and any diagnostic results supporting the discharge/admit diagnosis, lab results, radiology results, the need for further work-up and treatment in the hospital. ED course: Discussed case with Dr. Rodriguez who agrees patient should be at minimum observed over night and have another CT scan at the [address] Lambert as well who is good with accepting patient . 03/04 14:35 Order name: CT Head Brain wo Cont; Complete Time: 15:49 8 03/04 16:21 Order name: Wound Care; Complete Time: 17:44 [facility] 03/04 16:38 Order name: CONS Physician Consult EDAR Administered Medications: No medications were administered Disposition: 03/05 16:59 Co-signature as Attending Physician, Daniele Connors MD I agree with the assessment and margo plan of care. Disposition: 03/04/20 16:21 Hospitalization ordered by Alli Lambert for Observation. Preliminary diagnosis are Subdural Hemorrhage (Chronic), Superficial injury of head. - Bed requested for Telemetry/MedSurg (observation). - Status is Observation. jl7 - Condition is Stable. - Problem is new. - Symptoms have improved. Signatures: Dispatcher [employer] EDAR Daniele Connors MD MD cha Calderon, Audri, RN RN aa5 Raji Elaine PA PA jr8 Estela Valadez RN RN jl7 Venecia Hartley Corrections: (The following items were deleted from the chart) 03/04 14:37 14:35 Head Brain Wo Cont+CT.RAD.BRZ ordered. EDAR EDAR 16:55 16:21 Hospitalization Ordered by Alli Lambert MD for Observation. Preliminary diagnosis eb is Subdural Hemorrhage (Chronic); Superficial injury of head. Bed requested for Telemetry/MedSurg (observation). Status is Observation. Condition is Stable. Problem is new. Symptoms have improved. jr8 18:09 16:55 03/04/2020 16:21 Hospitalization Ordered by Alli Lambert MD for Observation. jl7 Preliminary diagnosis is Subdural Hemorrhage (Chronic); Superficial injury of head. Bed requested for Telemetry/MedSurg (observation). Status is Observation. Condition is Stable. Problem is new. Symptoms have improved. eb
[2020-03-04] MEDS ORDERED: MORPHINE 2 MG/ML SYR IV PRN (18:32)
[2020-03-04] MEDS ORDERED: ONDANSETRON 4 MG/2 ML VIAL IV PRN (18:32)
[2020-03-04] MEDS ORDERED: ACETAMINOPHEN 500 MG TAB PO PRN (18:32)
[2020-03-04 21:34] VITALS: BMI 33.0
[2020-03-05 05:56] LABS: Absolute Lymphocytes (CBC) 1.6 K/uL (0.7-4.9); Basophils % 0.1 % (0-1.3); Hematocrit 36.8 % (39.6-49.0); Lymphocytes % 16.1 % (15.3-44.8); MPV 6.9 fL (7.6-11.3); RBC Red Blood Cell Count 3.78 M/uL (4.33-5.43)
[2020-03-05] MEDS ORDERED: LEVOTHYROXINE 112 MCG PO SCH (06:00)
[2020-03-05 06:04] LABS: Potassium 3.8 mmol/L (3.5-5.1)
[2020-03-05] MEDS ORDERED: MONTELUKAST SODIUM 10 MG PO SCH (09:00)
[2020-03-05] MEDS ORDERED: HOME MED 1 EA UNK (Furosemide [Lasix*] 40 MG) PO SCH (09:00)
[2020-03-05] MEDS ORDERED: HOME MED 1 EA UNK (Metoprolol Tartrate [Lopressor*] 25 MG) PO SCH (09:00)
[2020-03-05] MEDS ORDERED: HOME MED 1 EA UNK (Pantoprazole [Protonix Tab*] 40 MG) PO SCH (09:00)
[2020-03-05] MEDS ORDERED: HOME MED 1 EA UNK (Prednisone [Prednisone*] 10 MG) PO SCH (09:00)
[2020-03-05] MEDS ORDERED: ALLOPURINOL 100 MG PO SCH (09:00)
[2020-03-05] MEDS ORDERED: TICAGRELOR 60 MG PO SCH (09:00)
[2020-03-05] MEDS ORDERED: HOME MED 1 EA UNK (Cholecalciferol (Vitamin D3) [Vitamin D3] 2,000 UNIT) PO SCH (09:00)
[2020-03-05] MEDS ORDERED: GABAPENTIN 100 MG PO SCH (09:00)
[2020-03-05] MEDS ORDERED: HOME MED 1 EA UNK (Pravastatin Sodium [Pravastatin Sodium] 40 MG) PO SCH (09:00)
[2020-03-05 12:07] VITALS: O2SAT 99
[2020-03-05 14:02] VITALS: BP 132/61; TEMP 97
--- NOTE | 2020-03-05 14:15 | RAD REPORT ---
EXAM DESCRIPTION: CT - Head Brain Wo Cont - 03/05/2020 2:03 pm CLINICAL HISTORY: Chronic subdural with new head trauma COMPARISON: Head Brain Wo Cont dated 03/04/2020 TECHNIQUE: Axial 5 mm thick images of the head were obtained without IV contrast. All CT scans are performed using dose optimization technique as appropriate and may include automated exposure control or mA/KV adjustment according to patient size. FINDINGS: Prior examination shows a subacute total right frontal convexity subdural hematoma. Findin g is again identified on the current study with no enlargement or acute hemorrhagic component seen. N o mass effect or midline shift. No acute cortical based infarction. No new cortical edema or sulcal e ffacement. Atrophy and chronic ischemic changes are present. Ventricles remain in proportion. Dense a rterial tree calcifications are present. Mastoid air cells and visualized portions of the paranasal sinuses are clear. No acute bony findings. IMPRESSION: Stable subacute to chronic right-sided subdural hematoma. No new finding from prior day imaging.
--- NOTE | 2020-03-05 22:12 | HP ---
Date of Admission: 03/04/2020 This is a 23-hour summary. Chief Complaint: He fell and hit his head on the concrete. History Of Present Illness: Mr. Erik Morton is a 74-year-old gentleman with a history of hypertension, chronic renal insufficiency. 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 He falls outside his home on the concrete and on a CT brain, which is done by emergency room, they found an old subdural hematoma and they decided to admit him so now he is in the hospital for feeling perfectly normal, 24-hour observation, is clinically stable. Denies any chest pain, nausea, vomiting. He never passed out. He has no signs of any intracranial damage at this point. Past Medical History: As described above. Surgical History: CABG, [facility], Dr. Haji, 2018; ankle surgery; back surgery; pacemaker defibrillator, 2018. Social History: Nonsmoker. Physical Examination: Vital Signs: reviewed. Chest: Clear. Heart: Regular. Abdomen: No guarding. No rebound. No rigidity. Skin: He has bilateral discoloration of his arms because of antiplatelet therapy he is on for long duration. He has no stitches, which are given to him. He has some signs of lacerations in the left side of scalp, which is currently stable and not bleeding. Investigations: His BUN and creatinine are high in the range of 2.5-3 approximately. I do not have his exact number in front of me. His baseline number is anywhere from 2.5 to 2.94 on the creatinine. He does go to Dr. Fair for his kidney insufficiency, who is in [place]. Assessment And Plan: 1. Fall, hit his head. No acute injury, subdural hematoma is stable. Dr. Glasgow called to let me know at about 2 p.m. this afternoon. 2. Chronic renal failure. Goes to Dr. Fair, will continue to follow up there. 3. Diabetes mellitus. His A1c is followed by me in the office. Current Medications: Allopurinol 100 mg once a day, amiodarone 200 mg once a day, Brilinta 90 mg p.o. b.i.d., furosemide 40 mg once a day, gabapentin 100 mg p.o. t.i.d., levothyroxine 112 mcg once a day. Metoprolol tartrate 25 mg b.i.d., pravastatin 40 mg once a day, pantoprazole 40 mg once a day. Trulicity once a week. Currently, he is on prednisone therapy because his cervical spine is in a terrible shape. There is severe pain and spasm. He cannot move his head beyond straightline until he is on steroids, try to give him steroids for 5 days and gabapentin for the same thing. Prognosis overall remains poor. He is advised to walk with a walker. He is advised to pay full precautions to falls. MIKAYLA/DARÍO Voice ID: [id number] TESSA
== END 2020-03-05 15:28 | disposition home or self-care (01) ==
LOC: ER 14:08 → ERHOLD 16:35 → 2ND 17:53
PROVIDERS: ADMIT Internal Medicine; ATTEND Internal Medicine
DX: S06.5X0A Traumatic subdural hemorrhage without loss of consciousness, initial encounter (principal); S00.90XA Unspecified superficial injury of unspecified part of head, initial encounter; W19.XXXA Unspecified fall, initial encounter; E03.9 Hypothyroidism, unspecified; E78.5 Hyperlipidemia, unspecified; K21.9 Gastro-esophageal reflux disease without esophagitis; J44.9 Chronic obstructive pulmonary disease, unspecified; J84.10 Pulmonary fibrosis, unspecified; I12.9 Hypertensive chronic kidney disease with stage 1 through stage 4 chronic kidney disease, or unspecified chronic kidney disease; E11.22 Type 2 diabetes mellitus with diabetic chronic kidney disease; N18.9 Chronic kidney disease, unspecified; I25.10 Atherosclerotic heart disease of native coronary artery without angina pectoris; Z11.59 Encounter for screening for other viral diseases; Z79.82 Long term (current) use of aspirin; Z79.899 Other long term (current) drug therapy; Z95.810 Presence of automatic (implantable) cardiac defibrillator; Z95.1 Presence of aortocoronary bypass graft
CPT/HCPCS: 85025; 80048; 36415; 70450 ×2; 99285; U0002; G0378 ×3